=== PATIENT | male | born 1985 | race Caucasian/White ===

== ENCOUNTER 2024-01-30 09:44 | Emergency (ER) | payer MEDICAID, SELFPAY ==
--- NOTE | ~2024-01-30 | XR_ITS ---
EXAMINATION: XR HAND/WRIST, LEFT CLINICAL INFORMATION: lac to palmar hand COMPARISON: None available. TECHNIQUE: PA, lateral, and oblique views of the left hand and wrist. FINDINGS: No fracture. Alignment is anatomic. Joint spaces are maintained. No radiopaque foreign body. There appear to be locules of subcutaneous air adjacent to the second metacarpal head on the oblique view. XR/XR hand wrist LT IMPRESSION: 1. No acute fracture or radiopaque foreign body. 2. There appear to be locules of subcutaneous air adjacent to the second metacarpal head on the oblique view, which may correspond to area of laceration. Electronically signed by: Domingo Collins MD 01/30/2024 12:05 PM [facility]
[2024-01-30 09:46] VITALS: BP 160/78; PULSE 93; RESP 20; TEMP 37.1; O2SAT 96; BMI 34.7
--- NOTE | 2024-01-30 10:06 | ED.WOUNDLAC ---
HPI - Wound/Laceration General Chief Complaint: Wound/Laceration Stated Complaint: Hand lac Time Seen by Provider: 01/30/24 10:05 Source: patient Mode of arrival: ambulatory Limitations: no limitations History of Present Illness ED Provider: LEN CRUZ PA-C HPI narrative: 38-year-old [id number] male presents to the ED today for evaluation of laceration to left hand sustained while cutting chicken this morning. He states that while slicing into the chicken with his right hand, the knife cut the palmar aspect of his left hand in two separate places. Reports immediate bleeding, controlled on arrival to ED. he is not on any blood thinners. Reports pain to the area. He is unsure of tetanus status. Related Data Previous Rx's ?Medication ?Instructions ?Recorded amoxicillin 875 mg-potassium 1 tab PO BID 7 days #14 tabs 01/30/24 clavulanate 125 mg tablet naproxen 500 mg tablet 500 mg PO Q12H PRN pain (scale 01/30/24 score 1-3) #20 tabs Allergies Allergy/AdvReac Type Severity Reaction Status Date / Time acetaminophen [From Tylenol] Allergy Abdominal Verified 01/30/24 09:48 Pain ibuprofen Allergy Abdominal Verified 01/30/24 09:48 Pain Review of Systems Review of Systems: Constitutional: No fever, chills, fatigue, night sweats, weight changes ENT/Mouth: No ear pain, hearing loss, nasal congestion, sinus pain, rhinorrhea, sore throat Eyes: No eye pain, swelling, redness, vision changes, discharge Cardio: No chest pain, palpitations, KERN, orthopnea, peripheral edema Pulm: No SOB, cough, sputum, wheezing, dyspnea, hemoptysis GI: No nausea, vomiting, hematemesis, abdominal pain, diarrhea, constipation, hematochezia, melena : No irregular bleeding, dysuria, frequency, urgency, hesitancy, hematuria, flank pain, urinary flow changes, urinary incontinence or retention MSK: No back pain, neck pain, joint pain, myalgias Skin: No lesions, rashes, +lacerations to left palm Neuro: No weakness, numbness, paresthesias, LOC, dizziness, headache Psych: No anxiety/panic, depression, SI/HI, AH/VH All other systems reviewed and are negative. [facility] Past Medical History Attestation statement: The following information was validated with the patient. Source: old records reviewed and nursing notes reviewed Social History Social History Advance Directives: No Advance Directives Information Provided: Yes Do you have a plan to hurt others: No Plan Physical Exam Vital Signs: Vital Signs: Last Vital Signs Temp 98.7 F 01/30/24 09:46 Pulse 93 01/30/24 09:46 Resp 20 01/30/24 09:46 BP 160/78 H 01/30/24 09:46 Pulse Ox 96 01/30/24 09:46 O2 Del Method Room Air 01/30/24 09:46 BMI result Body Mass Index 34.7 Patient hypertensive, vitals otherwise WNL General: Well appearing, in no acute distress. Skin: Warm, dry, intact. No rashes or lesions. Head: Normocephalic, atraumatic. Cardiac: Chest wall symmetric. RRR Lungs: Normal respiratory effort without accessory muscle use Ext: + 4 cm linear laceration noted to left palm between 1st and 2nd digits. Visible subcutaneous tissue, no involvement of deeper structures. There is also a smaller, 1 cm laceration to left palmar aspect just proximal to base of left little finger. No active bleeding. No obvious foreign body. 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 Finger to thumb opposition intact. Finger strength intact. Full ROM intact to left wrist. Neuro: AOx3. Normal speech. Ambulating with steady gait. Psych: Appropriate mood and affect. Responds appropriately to questions. Course Course Course Narrative: Both lacerations repaired after being extensively irrigated with saline and iodine. Please see procedure note. Tetanus updated today. Oxycodone given for pain. X-ray negative for any fracture or foreign body. I do not have suspicion for ligament or tendon injury. Will send patient home on Augmentin. Advised to return in 7-10 days for suture removal. Patient has remained stable throughout ED visit today. Discussed worrisome signs and symptoms and when to return to the ED. All questions answered at this time. Patient is agreeable with disposition and stable for discharge. Medications Administered Discontinued Medications Generic Name Dose Route Start Last Admin Trade Name Freq PRN Reason Stop Dose Admin Diphtheria/Tetanus/Acell Pertussis 0.5 ml 01/30/24 10:15 01/30/24 10:37 Diphth,Pertus(Acell),Tet Adult 0.5 Ml Syringe IM 01/30/24 10:16 0.5 ml .ONCE ONE Administration Lidocaine HCl 5 ml 01/30/24 10:15 01/30/24 10:38 Lidocaine Hcl 1 % Mpf 5 Ml Vial INFILTRATI 01/30/24 10:16 5 ml ONCE ONE Administration Lidocaine HCl 5 ml 01/30/24 10:16 01/30/24 10:38 Lidocaine Hcl 1 % Mpf 5 Ml Vial INFILTRATI 01/30/24 10:17 5 ml ONCE ONE Administration Oxycodone HCl 5 mg 01/30/24 10:15 01/30/24 10:37 Oxycodone Hcl Immed Release 5 Mg Tablet PO 01/30/24 10:16 5 mg ONCE ONE Administration Medical Decision Making Medical Decision Making MDM Narrative: 38-year-old [id number] male presents to the ED today for evaluation of laceration to left hand sustained while cutting chicken this morning. Patient is hypertensive, vitals otherwise WNL. On exam, there is a 4 cm linear laceration noted to left palm between 1st and 2nd digits. Visible subcutaneous tissue, no involvement of deeper structures. There is also a smaller, 1 cm laceration to left palmar aspect just proximal to base of left little finger. No active bleeding. No obvious foreign body. 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 Finger to thumb opposition intact. Finger strength intact. Full ROM intact to left wrist. Differential diagnosis includes abrasion, laceration. Unlikely ligament/tendon injury, fracture. Plan for pain control, x-ray, laceration repair, Tdap booster, re-evaluation. Differential Diagnosis Differential Diagnoses: The differential diagnosis associated with the presentation includes As above Admission/Observation Not indicated Independent Interpretation I performed an independent interpretation of an: Plain X-Ray Interpretation: X-ray left hand without fracture or radiopaque fb Radiology Impression Discussion of test interpretation with radiology: I have reviewed the radiologist's reading. Radiologist Impression: EXAMINATION: XR HAND/WRIST, LEFT CLINICAL INFORMATION: lac to palmar hand COMPARISON: None available. TECHNIQUE: PA, lateral, and oblique views of the left hand and wrist. FINDINGS: No fracture. Alignment is anatomic. Joint spaces are maintained. No radiopaque foreign body. There appear to be locules of subcutaneous air adjacent to the second metacarpal head on the oblique view. XR/XR hand wrist LT IMPRESSION: 1. No acute fracture or radiopaque foreign body. 2. There appear to be locules of subcutaneous air adjacent to the second metacarpal head on the oblique view, which may correspond to area of laceration. Electronically signed by: Domingo Collins MD 01/30/2024 12:05 PM [facility] Independent Historian Clinical information obtained from an independent historian. History obtained from or confirmed by: Spouse External Record Review External record reviewed: Inpatient record Prescription Management I considered prescription management with: Antibiotic Social Determinants Patient?s care significantly limited by Social Determinants of Health including: Other Social Determinant of Health Procedures Laceration Laceration 1: Site: hand Side (If applicable): left Size (cm): 4 Description: linear Depth: simple, single layer Local Anesthetic: lidocaine 1% Amount of anesthesia used (mL): 5 Pre-repair: wound explored, irrigated extensively and deep structures intact Skin layer closed with: nylon Size (cm): 4-0 Number of sutures: 7 Technique: simple, interrupted Laceration 2: Site: hand Side (If applicable): left Size (cm): 1 Description: linear Depth: simple, single layer Local Anesthetic: lidocaine 1% Amount of anesthesia used (mL): 5 Pre-repair: wound explored, irrigated extensively and deep structures intact Skin layer closed with: nylon Size (cm): 4-0 Number of sutures: 2 Critical Care Time Critical Care Time Critical Care Time: No Discharge Plan Discharge Clinical Impression: Laceration of hand Qualifiers: Encounter type: initial encounter Foreign body presence: without foreign body Laterality: left Qualified Code(s): S61.412A - Laceration without foreign body of left hand, initial encounter Patient Disposition: Home, Self-Care Instructions: Care For Your Stitches (ED), Laceration (ED) Additional Instructions: You have been evaluated in the Emergency Department today for two lacerations to your left palm. The larger laceration was repaired with 7 sutures and the smaller laceration was repaired with 2 sutures. Please keep the area surrounding the laceration clean and dry. Do not wash the area for at least 24 hours. After 24 hours, you may wash the area, pat to dry. Please keep the area out of the sunlight for the next 6 months to help prevent scarring.? If you develop redness or swelling at the site of your laceration please come back to the ER for a wound check. I recommend you take 600mg ibuprofen every 6 hours or tylenol 650mg every 6 hours as needed for pain. If needed, you can alternate these medications so that you take one medication every 3 hours. For example, at noon take ibuprofen, then at 3pm take tylenol, then at 6pm take ibuprofen. Please follow up with your primary care physician in 7-10 days for suture removal. You can also return to the ER or another urgent care facility for this service. Return to the Emergency Department if you experience discharge from your laceration, redness around your laceration, warmth around your laceration, fever, vomiting, numbness, tingling, or any other concerning symptoms. In the case of an emergency call 911. Prescriptions: New amoxicillin-pot clavulanate 875-125 mg tablet 1 tab PO BID 7 Days Qty: 14 0RF naproxen 500 mg tablet 500 mg PO Q12H PRN (Reason: pain (scale score 1-3)) Qty: 20 0RF Referrals: Lesly Lei MD [Physician] - Print Language: Slovak
[2024-01-30] MEDS: Diphth,Pertus(ACell),Tet Adult 0.5 ML SYRINGE IM (10:37)
[2024-01-30] MEDS: oxyCODONE HCl Immed Release 5 MG TABLET PO (10:37)
[2024-01-30] MEDS: Lidocaine HCl 1 % MPF 5 ML VIAL INFILTRATI ×2 (10:38)
[2024-01-30 12:31] VITALS: BP 160/78; PULSE 93; RESP 20; TEMP 37.1; O2SAT 96
== END 2024-01-30 12:32 | disposition home or self-care (01) ==
PROVIDERS: Emergency Provider Emergency Medicine
DX: S61.412A Laceration without foreign body of left hand, initial encounter (principal); W26.0XXA Contact with knife, initial encounter; Y93.G3 Activity, cooking and baking; Y92.89 Other specified places as the place of occurrence of the external cause; Y99.8 Other external cause status; Z23 Encounter for immunization
CPT/HCPCS: 12042; 73110; 73130; 90471; 90715; 99283; 99284; J2003

== ENCOUNTER 2024-03-20 08:48 | Emergency (ER) | payer MEDICAID, SELFPAY ==
--- NOTE | ~2024-03-20 | XR_ITS ---
EXAMINATION: XR CHEST CLINICAL INFORMATION: cough COMPARISON: None available. TECHNIQUE: 2 views of the chest were obtained. FINDINGS: The cardiac, hilar, and mediastinal contours are normal. The lungs are clear bilaterally. Mildly low lung volumes. There is no pneumothorax or pleural effusion. There is no focal osseous or soft tissue abnormality. XR/XR chest 2V IMPRESSION: No active pulmonary disease. Electronically signed by: Jacinto Jimenez MD 03/20/2024 10:47 AM [facility]
--- NOTE | 2024-03-20 08:52 | ECG_ITS ---
Test Reason : chest pain Blood Pressure : */* mmHG Vent. Rate : 81 BPM Atrial Rate : 81 BPM P-R Int : 148 ms QRS Dur : 82 ms QT Int : 336 ms P-R-T Axes : 42 -16 20 degrees QTcB Int : 390 ms Normal sinus rhythm Normal ECG No previous ECGs available Referred By: Generic ED Physician Electronically Signed By: DONALD DYE
[2024-03-20 08:53] VITALS: BP 145/87; PULSE 92; RESP 18; TEMP 37; O2SAT 98; BMI 33.9
[2024-03-20 09:47] LABS: Influenza A PCR POSITIVE (Negative); Influenza B PCR NEGATIVE (Negative); Resp Syncy Virus RNA Qual PCR NEGATIVE (Negative); SARS COV2 PCR INHOUSE NEGATIVE (Negative)
[2024-03-20 11:16] VITALS: PULSE 91; RESP 20; O2SAT 96
[2024-03-20] MEDS: Albuterol Sulfate 2.5 MG, Albuterol/Iprat 2.5/0.5MG 3 ML 3 ML INHALE (11:16)
--- NOTE | 2024-03-20 11:24 | ED.URI ---
HPI - URI/Sore Throat General Chief Complaint: Upper Respiratory Symptoms Stated Complaint: Chest pain, SOB Time Seen by Provider: 03/20/24 10:07 Source: patient, RN notes reviewed and old records reviewed Mode of arrival: ambulatory History of Present Illness ED Provider: Loan Aparicio PA-C HPI Narrative: 38-year-old male with a past medical history of asthma presenting to the ED complaining of cough, SOB, chest discomfort, diarrhea, myalgias, body aches, chills, subjective fever x few days. Admits partner sick with similar symptoms. Denies travel, pedal edema, abdominal pain, vomiting Related Data Previous Rx's ?Medication ?Instructions ?Recorded amoxicillin 875 mg-potassium 1 tab PO BID 7 days #14 tabs 01/30/24 clavulanate 125 mg tablet naproxen 500 mg tablet 500 mg PO Q12H PRN pain (scale 01/30/24 score 1-3) #20 tabs albuterol sulfate 90 mcg/actuation 2 puff inhalation Q4-6H PRN 03/20/24 aerosol inhaler shortness of breath or wheezing #6.7 grams Allergies Allergy/AdvReac Type Severity Reaction Status Date / Time acetaminophen [From Tylenol] Allergy Abdominal Verified 03/20/24 08:54 Pain ibuprofen Allergy Abdominal Verified 03/20/24 08:54 Pain Review of Systems Review of Systems: Yes all other systems are reviewed and are negative Constitutional: Constitutional: Reports as per [facility] Past Medical History Attestation statement: The following information was validated with the patient. Source: old records reviewed Physical Exam Vital Signs: Vital Signs: Last Vital Signs Temp 99.2 F 03/20/24 11:45 Pulse 106 H 03/20/24 11:45 Resp 18 03/20/24 11:45 BP 137/76 03/20/24 11:45 Pulse Ox 96 03/20/24 11:45 O2 Del Method Room Air 03/20/24 11:45 BMI result Body Mass Index 33.9 Const: General: cooperative, healthy appearing and no acute distress Orientation/consciousness: patient oriented x3 Limitations: no limitations HEENT: Head: Yes normal to inspection and Yes atraumatic Ears: hearing grossly normal bilaterally General nose exam: Normal external nose present Face and sinus: Yes normal facial exam Mouth: Normal oral and palatal mucosa present Throat: Yes posterior oropharynx normal and Yes uvula midline Eyes: General: appearance normal, both eyes and all related structures EOM: EOMs intact bilaterally Neck: Neck: Yes normal visual inspection and Yes no meningeal signs Resp: Effort & Inspection: normal respiratory effort and no respiratory distress Auscultation: wheezes expiratory wheezes (Right basilar region) and lung sounds not diminished Cardio: Rate: regular rate Heart sounds: S1 normal heart sound present and S2 normal heart sound present Skin: Rashes: no rashes Wounds: no wounds Neuro: General: patient oriented x3, tone normal and no meningeal signs Cranial nerves: Yes CN's II-XII intact bilaterally Gait exam (Neuro): Normal gait present Extrem: General: Yes normal to inspection and Yes no pedal edema Course Course Course Narrative: -1132--influenza a positive > patient is out of the window for Tamiflu XR chest 2V IMPRESSION: No active pulmonary disease. Results discussed with patient including worrisome signs and symptoms and strict return precautions, and when to return to the emergency department. They verbalized understanding and feel safe for discharge at this time. Medications Administered Discontinued Medications Generic Name Dose Route Start Last Admin Trade Name Freq PRN Reason Stop Dose Admin Albuterol Sulfate 2.5 mg/ 0 mg 03/20/24 11:15 03/20/24 11:16 Albuterol/Ipratropium 3 ml INHALE 03/20/24 11:16 1 dose ONCE ONE Administration Medical Decision Making Medical Decision Making [facility] Narrative: 38-year-old male with a past medical history of asthma presenting to the ED complaining of cough, SOB, chest discomfort, diarrhea, myalgias, body aches, chills, subjective fever x few days. On exam vital signs stable, NAD, nontoxic appearing, lungs with right bibasilar wheeze, talking in complete sentences. Concern for viral illness vs asthma exacerbation vs pneumonia/bronchitis. Lower suspicion for ACS, PE, DVT, dissection Plan: EKG, CXR, viral testing, ED bronch protocol Please refer to course for remaining clinical decision making, interpretation of labs/imaging results, and discussions with consultants and/or family members. Differential Diagnosis Differential Diagnoses: The differential diagnosis associated with the presentation includes As above Lab Data [facility] Lab Attestation statement: I reviewed the patient's lab results. Labs: Lab Results 03/20/24 Range/Units 09:02 Influenza Type A (PCR) POSITIVE A (Negative) Influenza Type B (PCR) NEGATIVE (Negative) RSV RNA Qual (PCR) NEGATIVE (Negative) SARS-CoV-2 RNA (RT-PCR) NEGATIVE (Negative) Independent Interpretation I performed an independent interpretation of an: EKG (My interpretation EKG normal sinus rhythm rate of 81. HI interval 148. No previous EKGs to compare. No STEMI ) and Plain X-Ray Radiology Impression Discussion of test interpretation with radiology: I have reviewed the radiologist's reading. External Record Review External record reviewed: Inpatient record, Office record, Outpatient record, Prior outpatient labs, Prior outpatient radiology, Primary care record and Outside ED record Tests considered The following testing was considered but not selected: As above Prescription Management I considered prescription management with: Other Chronic Conditions Patient?s care impacted by: Other (Asthma) Social Determinants Patient?s care significantly limited by Social Determinants of Health including: Other Social Determinant of Health Discharge Plan Discharge Clinical Impression: Influenza Patient Disposition: Home, Self-Care Instructions: Influenza (DC) Additional Instructions: You have the flu. This is contagious, please wear a mask, wash her hands, stay away from the elderly and baby's Please use albuterol inhaler at home No antibiotics are indicated at this time Make sure you are staying hydrated. Drink plenty of fluids. Rest Alternate Tylenol and Motrin at home as needed for body aches and fever Follow-up with your doctor. If symptoms persist or worsen return to the emergency department *If you are a child & not tolerating liquid or urinating for more than 6 hours, or fevers are uncontrolled with medications at home, return to the emergency department* Prescriptions: New albuterol sulfate 90 mcg/actuation HFA aerosol inhaler 2 puff inhalation Q4-6H PRN (Reason: shortness of breath or wheezing) Qty: 6.7 0RF No Action amoxicillin-pot clavulanate 875-125 mg tablet 1 tab PO BID 7 Days Qty: 14 0RF naproxen 500 mg tablet 500 mg PO Q12H PRN (Reason: pain (scale score 1-3)) Qty: 20 0RF Referrals: Physician,Unknown J [Primary Care Provider] - Stand Alone Forms: Work/School Release Interventions: ED Discharge Assessment Last Done: 03/20/24 11:45 Discharge Date/Time: 03/20/24 11:46 Print Language: Somali
[2024-03-20 11:45] VITALS: BP 137/76; PULSE 106; RESP 18; TEMP 37.3; O2SAT 96
--- NOTE | 2024-03-20 12:07 | PC.NURSE ---
pt noted to have left white debit card on the floor in [place]. voicemail left on cell phone. card provided to security.
== END 2024-03-20 11:46 | disposition home or self-care (01) ==
PROVIDERS: Emergency Provider Emergency Medicine Emergency Medical Services
DX: J10.1 Influenza due to other identified influenza virus with other respiratory manifestations (principal); R05.9 Cough, unspecified; R06.02 Shortness of breath; Z03.818 Encounter for observation for suspected exposure to other biological agents ruled out
CPT/HCPCS: 0241U; 71046; 93005; 94640; 99284

== ENCOUNTER → 2024-03-20 08:52 | Outpatient (BNV) | payer MEDICAID, SELFPAY | PROVIDERS: Emergency Provider Emergency Medicine Emergency Medical Services; Visit Provider Internal Medicine | DX: R07.9 Chest pain, unspecified (principal) | CPT/HCPCS: 93010 ==

== ENCOUNTER → 2024-03-20 10:08 | Outpatient (BNV) | payer MEDICAID, SELFPAY | PROVIDERS: Visit Provider Radiology Diagnostic Radiology | DX: R05.9 Cough, unspecified (principal) | CPT/HCPCS: 71046 ==

== ENCOUNTER 2024-11-11 02:33 | Emergency (ER) | payer MEDICAID, SELFPAY ==
[2024-11-11 02:40] VITALS: BP 145/92; PULSE 80; RESP 20; O2SAT 95; BMI 34.4
--- OUTSIDE RECORDS SUMMARY | 2024-11-11 02:55 | XMS_ITS | Clinical Summary ---
Author Organization [facility] Address [address] [place] [address] Care Team Providers Care Videogame Tester Name Role Phone Giacomo Miller Primary Care Provider [phone] Source Comments PLEASE NOTE, if this patient is a minor, it may be UNLAWFUL to discuss sensitive information that is contained in these records (such as FAMILY PLANNING, MENTAL HEALTH or SUBSTANCE ABUSE) with the minor patient's parent or other person without the patient's specific authorization.[facility] Allergies Active Allergy Reactions Criticality Noted Date Comments Acetaminophen Other (See Comments) 10/26/2013 Irritates stomach Shrimp Anaphylaxis 10/26/2013 Medications buPROPion HCL (WELLBUTRIN) 100 mg tabletIndications: Irritability Take 1 Tablet by mouth 2 (two) times daily 60 Tablet 1 4 Active fluticasone furoate 100 mcg/actuation dsdvIndications:As thma in adult, mild persistent, uncomplicated (HHS-HCC) Inhale 1 Puff into the lungs once daily 30 Each 1 4 Active albuterol HFA 90 mcg/actuation inhalerIndications :Asthma in adult, mild persistent, uncomplicated (HHS-HCC) INHALE 2 PUFFS INTO THE LUNGS EVERY 6 HOURS. 18 g 5 Active diclofenac sodium (VOLTAREN) 1 % gelIndications:Acu te pain of right shoulder Apply topically 2 (two) times daily. 100 g 1 5 Active lidocaine (LIDODERM) 5 % patchIndications:A cute pain of right shoulder,Right-zohaib ed low back pain without sciatica, unspecified chronicity,Injury of right knee, initial encounter Place 1 Patch onto the skin daily Apply 1 patch to the affected area for a maximum of 12 hours, followed by removal for 12 hours.. 40 Patch 2 5 Active traMADoL (ULTRAM) 50 mg tabletIndications: Acute pain of right shoulder,Right-zohaib ed low back pain without sciatica, unspecified chronicity,Injury of right knee, initial encounter,Chronic bilateral thoracic back pain Take 1-2 Tablets by mouth every 6 (six) hours as needed for pain. 60 Tablet 3 5 Active Active Problems Patient Care Coordination No te Formatting of this note migh t be different from the original. 33 y/o male patient in for back pain and urinary frequency. Chronic back pain: seen 05/24/18, c/o increasing midline lower back pain over past year, initially provoked at the age of 17 due to unknown cause. Described as a constant aching sensation and cannot identify alleviating factors. Denies paraesthesia, radiation or bladder/bowel incontinence. Patient participated in physical therapy about 1.5y ago and was referred to second course at [place]. Occupation requires him to be on his feet most of the day. Problem Noted Date Diagnosed Date Current every day smoker 12/18/2018 Overview (12/18/2018): Per 10/20/18 [facility] ED report History of incarceration 05/24/2018 Overview (01/09/2019): Patient states he was incarcerated in 2005 x 5 years. Released 2011. Heart murmur 05/24/2018 Overview (01/09/2019): Referred for EKG at [facility] 07/09 Blurred vision 05/24/2018 Overview (01/09/2019): Referred to associate programmer analyst for apt 07/09 Corneal abrasion 06/11/2016 Overview (06/11/2016): 04/21/16 [facility] ED for corneal abrasion, FB removed but + residual rust ring. Given Gentamicin x 7 days, tramadol, advised f/u with ophthalmology for rust ring Substance abuse ([facility]) 03/30/2015 Overview (03/30/2015): Opioid, cocaine, cannabis Anxiety 03/30/2015 Back pain, chronic 10/28/2013 Overview (01/09/2019): 02/25/2014 [facility]: thoracic and lumbar spine negative, working with PT 201405/24/18 - increasing midline lower back pain over past year, initially provoked at the age of 17 due to unknown cause. Described as a constant aching sensation and cannot identify alleviating factors. Denies paraesthesia, radiation or bladder/bowel incontinence. Patient participated in physical therapy about 1.5y ago and was referred to second course at [place]. 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 Asthma in adult ([facility]) 10/26/2013 Overview (01/06/2015): [facility] 2014 negative Immunizations Immunization Administration Dates Next Due Flu, Preservative Free 01/30/2019 INFLUENZA, SEASONAL, INJECTABLE 12/14/2013 INFLUENZA,SEASONAL,INTRADERMAL,PRESERVATIVE FREE 04/14/2017 PNEUMOCOCCAL POLYSACCHARIDE PPV23 (Pneumovax 23) 04/14/2017 PPD 01/30/2019 TDAP 06/16/2015 Varicella (Varivax), Live Vaccine 05/25/2018,05/2018 Social History Tobacco Use Types Packs/Day Years Used Date Smoking Tobacco: Former Cigarettes Smokeless Tobacco: Never Tobacco Cessation:Counseling Given: Not Answered Alcohol Use Standard Drinks/Week Comments No 0 (1 standard drink = 0.6 oz pur e alcohol) occasional Social Connections Answer Date Recorded Connectedness 1 03/30/2023 Financial Resource Strain Answer Date R ecorded Financial Resource Strain 1 2023 Stress Answer Date Recorded Stress 0 06/30/2022 Physical Activity Answer Date Recorded Physical Activity 0 10/14/2018 Food Insecurity Answer Date Recorded Food 1 03/30/2023 Transportation Needs Answer Date Record ed Transportation 1 03/30/2023 Housing Stability Answer Date Recorded Housing 1 03/30/2023 Safety and Environment Answer Date Enio rded Safety 1 03/30/2023 Utilities Answer Date Recorded Utilities 1 03/30/2023 Employment Answer Date Recorded Employment 0 10/14/2018 Sex and Gender Information Value Date Recorded Sex Assigned at Male 04/14/2017 8:08 AM PST Legal Sex Male 7:25 AM PST Gender Identity Male 04/14/2017 8:08 AM PST Sexual Orientation Straight 04/14/2017 8: 08 AM PST Last Filed Vital Signs Vital Sign Reading Time Taken Comments Blood Pressure 146/82 07/19/2024 1:42 PM EDT Pulse 76 07/19/2024 1:42 PM EDT Temperature 36.8 C (98.2 F) 07/19/2024 1:42 PM EDT Respiratory Rate 19 07/19/2024 1:42 PM EDT Oxygen Saturation 96% 10/14/2023 3:08 PM EDT Inhaled Oxygen Concentration - - Weight 98.4 kg (217 lb) 07/19/2024 1:42 PM EDT Height 167.6 cm (5' 6 ) 07/19/2024 1:42 PM EDT Body Mass Index 35.02 07/19/2024 1:42 PM EDT Plan of Treatment Health Maintenance Due Date Last Done Comments Imm-HPV (1 - 3-dose SCDM series) 04/28/2011 Imm-Pneumococcal (2 of 2 - PCV) 04/14/2018 8 Alcohol and Drug Screen 02/22/2024 03/30/19 24, 06/30/2022, 05/25/2021, Additional history exists Tobacco Cessation Counseling (#1) 03/29/2024 Lipid Screening 10/15/2024 10/15/2021, 04/0 04/2018, 12/10/2013 [id number] ( season) 2024 Imm-Influenza (#1) 2024 01/30/2019, 0 04/14/2017, 12/14/2013 Imm-DTaP/Tdap/Td (2 - Td or Tdap) 06/15/2025 016 Annual Wellness (Adult): Indicated (All Coverage) 07/19/2025 07/19/2024, 03/30/2023, 05/25/2021, Additional history exists Anxiety Screening 07/19/2025 07/19/2024 Diabetes Screening 07/19/2025 07/19/2024, 0 07/19/2024, 10/15/2021, Additional history exists Hypertension Screening (#1) 07/19/2025 Tobacco Screening 07/19/2025 07/19/2024 HIV Screening Completed 10/15/2021, 05/24/2018 Hepatitis C Screening Completed 10/15/2021 Syphilis Screening Discontinued 10/15/2021 Depression Annual Screen Completed 025, 03/30/2023, 04/14/2017, Additional history exists Imm-Hepatitis B Discontinued Procedures Procedure Name Priority Date/Time Associated Diagnosis Comments HGBA1C W/MPG Routine 07/19/2024 2:13 PM EDT Asthma in adult without complication, unspecified asthma severity, unspecified whether persistent (HHS-HCC) Asthma in adult, mild persistent, uncomplicated (HHS-HCC) Routine [facility] Chest pressure STANISLAV (obstructive sleep apnea) HIV 1/2 AG & AB W/RFLX (4TH GEN) Routine 10/15/2021 11:24 AM EDT Routine screening for STI (sexually transmitted infection) SYPHILIS ANTIBODY CASCADING REFLEX Routine 10/15/2021 11:24 AM EDT Routine screening for STI (sexually transmitted infection) HEPATITIS C AB W/RFLX HCV RNA, QT, RT PCR Routine 10/15/2021 11:24 AM EDT Routine screening for STI (sexually transmitted infection) LIPID PANEL Routine 10/15/2021 11:24 AM EDT Nonintractable headache, unspecified chronicity pattern, unspecified headache type from Last 3 Months or Most Recently Relevant to Health Maintenance Results * (ABNORMAL) HGBA1C W/MPG Routine (07/19/2024 2:13 PM EDT) HEMOGLOBIN A1C 5.7(H) <5.7 % [employer] [facility] Comment: For someone without known diabetes, a hemoglobin A1c value between 5.7% and 6.4% is consistent with prediabetes and should be confirmed with a follow-up test. For someone with known diabetes, a value <7% indicates that their diabetes is well controlled. A1c targets should be individualized based on duration of diabetes, age, comorbid conditions, and other considerations. This assay result is consistent with an increased risk of diabetes. Currently, no consensus exists regarding use of hemoglobin A1c for diagnosis of diabetes for children. MEAN PLASMA GLUCOSE 126 mg/dL (calc) [facility] Blood Blood / Unknown 07/19/2024 2 :13 PM EDT 07/19/2024 2:14 PM EDT Narrative [employer] - 07/20/2024 3:17 PM EDT FASTING:NO Giacomo DAVIDSON LAB - BLOOD DRAW Edited Result - Final Performing Organization Address [facility]/ZIP Co de Phone Number [employer] [address] [place] [address], [employer] [address] [address] * HEPATITIS C AB W/RFLX HCV RNA, QT, RT PCR (10/15/2021 11:24 AM EDT) HEPATITIS C ANTIBODY NON-REACT GUANACO NON-REACT GUA[employer]CO [facility] SIGNAL TO CUT-OFF 0.15 <1.00 [facility] Comment: HCV antibody was non-reactive. There is no laboratory evidence of HCV infection. In most cases, no further action is required. However, if recent HCV exposure is suspected, a test for HCV RNA (test code 24640) is suggested. For additional information please refer to http://education.[employer]/faq/SVH42i9 (This link is being provided for informational/ educational purposes only.) Blood Blood / Unknown 10/15/2021 1 1:24 AM EDT 10/15/2021 11:24 AM EDT Rachel PAULAP-C LAB - BLOOD DRAW Edited Result - Final Performing Organization Address [facility]/ZIP Co de Phone Number [employer] [address] [address], [employer] [address] [place] [address],[place] [address] * SYPHILIS ANTIBODY CASCADING REFLEX (10/15/2021 11:24 AM EDT) T. PALLIDUM AB, EIA NEGATIVE NEGATIVE [facility] Comment: No antibodies to T. pallidum (the agent causing syphilis) were detected in the specimen. This result, however, does not exclude very recent T. pallidum infection; testing of a second specimen, collected 2-4 weeks after this specimen, is recommended if the index of suspicion for recent infection is high. Blood Blood / Unknown 10/15/2021 1 1:24 AM EDT 10/15/2021 11:24 AM EDT Rachel Mendoza APPLICATIONS SYSTEMS ANALYST-C LAB - BLOOD DRAW Edited Result - Final [employer] [address] [address], [employer] [address] [address] * HIV 1/2 AG & AB W/RFLX (4TH GEN) (10/15/2021 11:24 AM EDT) HIV AG/AB, 4TH GEN NON-REAC TIVE NON-REAC TIVE [employer] [facility] Comment: HIV-1 antigen and HIV-1/HIV-2 antibodies were not detected. There is no laboratory evidence of HIV infection. PLEASE NOTE: This information has been disclosed to you from records whose confidentiality may be protected by state law. If your state requires such protection, then the state law prohibits you from making any further disclosure of the information without the specific written consent of the person to whom it pertains, or as otherwise permitted by law. A general authorization for the release of medical or other information is NOT sufficient for this purpose. For additional information please refer to http://education.[employer]/faq/QMS178 (This link is being provided for informational/ educational purposes only.) The performance of this assay has not been clinically validated in patients less than 2 years old. Blood Blood / Unknown 10/15/2021 1 1:24 AM EDT 10/15/2021 11:24 AM EDT us Rachel Mullervich APPLICATIONS SYSTEMS ANALYST-C LAB - BLOOD DRAW Final R esult [employer] [facility] [address] [address], [employer] [address] [address] * LIPID PANEL (10/15/2021 11:24 AM EDT) CHOLESTEROL, TOTAL 155 <200 mg/dL [facility] HDL CHOLESTEROL 45 > OR = 40 mg/dL [employer] TRIGLYCERIDES 106 <150 mg/dL [employer] LDL-CHOLESTEROL 90 99 mg/dL (calc) [employer] [facility] Comment: Reference range: <100 Desirable range <100 mg/dL for primary prevention; <70 mg/dL for patients with CHD or diabetic patients with > or = 2 CHD risk factors. LDL-C is now calculated using the Dragan calculation, which is a validated novel method providing better accuracy than the Friedewald equation in the estimation of LDL-C. Justin KIM et al. DEAN. 2013;310(19): 2894-3604 (http://education.[employer]/faq/VGZ290) CHOL/HDLC RATIO 3.4 <5.0 (calc) [employer] NON-HDL CHOLESTEROL 110 <130 mg/dL (calc) [employer] Comment: For patients with diabetes plus 1 major ASCVD risk factor, treating to a non-HDL-C goal of <100 mg/dL (LDL-C of <70 mg/dL) is considered a therapeutic option. Blood Blood / Unknown 10/15/2021 1 1:24 AM EDT 10/15/2021 11:24 AM EDT Rachelstephanie Mendoza APPLICATIONS SYSTEMS ANALYST-C LAB - BLOOD DRAW Final R esult [facility] [address] [address], [employer] [address] [address] from Last 3 Months or Most Recently Relevant to Health Maintenance Insurance [employer] Care Teams Videogame Tester Relationship Specialty Start Date End Date Giacomo Miller PA [address] [place] [address] PCP - General Internal Medicine 06/01/17
--- OUTSIDE RECORDS SUMMARY | 2024-11-11 02:55 | XMS_ITS | Clinical Summary ---
Author Organization [employer] [facility] Address [address] [place] [address] Care Team Providers Care Machine Cloth Examiner Name Role Phone Unavailable Primary Care Provider Unavailabl e Encounters Date Type Department Care Team Description 09/11/2024 Population Health Risk Score [facility] (C3) Department [address] [facility] [address] [place] [id number] Provider, Population Health Generic from Last 3 Months Social History Tobacco Use Types Packs/Day Years Used Date Smoking Tobacco: Never Assessed Sex and Gender Information Value Date Recorded Sex Assigned at Not on file Legal Sex Male 9:30 PM EDT Gender Identity Not on file Sexual Orientation Not on file Plan of Treatment Health Maintenance Due Date Last Done Comments Depression Screening 1984 Lipid Panel 1984 SDOH Screening 1984 Disability Screening 1984 Alcohol/Substance Use Screening 1996 Tobacco Screening 1996 Family Planning (PISQ) 04/28/1999 HPV Vaccines (1 - Male 3-dos e series) 04/28/1999 Hepatitis C Screening 2002 Hepatitis B Vaccines (1 of 3 - 19+ 3-dose series) 04/28/2003 Pneumococcal Vaccine: Pediatrics (0 to 5 Years) and At-Risk Patients (6 to 49) Years (2 of 2 - PCV) 04/14/2018 04/14/2017 COVID-19 Vaccine (1 - 2023-2 5 season) 2024 Influenza Vaccine (#1) 2024 9, 04/14/2017, 12/14/2013 DTaP/Tdap/Td Vaccines (2 - T d or Tdap) 06/15/2025 06/16/2015 Zoster Vaccines (1 of 2) 2034 RSV Patients and Patients Aged 60 years or older (1 - 1-dose 75+ series) 04/28/2059 HIV Screening Completed 10/15/2021, 10/15/2021 HIB Vaccines Aged Out No longer eligi ble based on patient's age to complete this topic Hepatitis A Vaccines Aged Out No long er eligible based on patient's age to complete this topic IPV Vaccines Aged Out No longer eligi ble based on patient's age to complete this topic Meningococcal B Vaccine Aged Out No l onger eligible based on patient's age to complete this topic Meningococcal Vaccine Aged Out No lebron heather eligible based on patient's age to complete this topic RSV under 20 months Aged Out No longe r eligible based on patient's age to complete this topic Rotavirus Vaccines Aged Out No longer eligible based on patient's age to complete this topic
[2024-11-11] MEDS: Lidocaine HCl Viscous 2 % 15 ML SOLUTION MUCOUS MEM (03:14)
--- NOTE | 2024-11-11 04:15 | ED_ITS ---
HPI - Male Genitourinary General Chief complaint: Urogenital-Male Stated complaint: Uro Gen Male Time Seen by Provider: 11/11/24 02:54 History of Present Illness ED Provider: Johnathon Sadler MD HPI Narrative: This is a 39-year-old male who describes about 2 days of phimosis. He has been able to urinate denies fever or chills or any urologic issues in the past. He had called the urologist to possibly discuss an elective circumcision however earlier in the evening he pulled his foreskin back and then it became stuck as a paraphimosis. He has passed urine. Related Data Previous Rx's ?Medication ?Instructions ?Recorded amoxicillin 875 mg-potassium 1 tab PO BID 7 days #14 t abs 01/30/24 clavulanate 125 mg tablet naproxen 500 mg tablet 500 mg PO Q12H PRN pain (sca le 01/30/24 score 1-3) #20 tabs albuterol sulfate 90 mcg/actuation 2 puff inhalation Q 4-6H PRN 03/20/24 aerosol inhaler shortness of breath or wheez ing #6.7 grams bacitracin 500 unit/gram topical 1 appl topical TID #1 4 grams 11/11/24 ointment Allergies Allergy/AdvReac Type Severity Reaction Status Date / Time acetaminophen (From Tylenol) Allergy Abdominal Verified 11/11/24 02:41 Pain ibuprofen Allergy Abdominal Verified 11/11/24 02:41 Pain PMFSH Social History Social History Substance Use Type: Marijuana Physical Exam Exam: Exam: GENERAL: Well appearing. No apparent distress. Alert. HEAD/NECK: No visual trauma. EYES: Normal to inspection. No conjunctival erythema. No discharge. ENMT: Hearing grossly normal. External nose normal. RESPIRATORY: Respiratory effort normal. CARDIOVASCULAR: Additional details (Grossly well perfused). SKIN: No jaundice. NEUROLOGICAL: Alert. Moving all extremities x4. Additional details (No gross motor deficits. Normal tone. ). PSYCHIATRIC: Alert. Appearance appropriate for situation. : Paraphimosis with tight constricted ring at the base of the glans. Some of the foreskin is trapped distal. The glands is edematous does not appear dusky or necrotic but has a slightly darker appearance than would be expected. There does appear to be cap refill. Vital Signs: Vital Signs: Last Vital Signs Temp 0 F L 11/11/24 11:13 Pulse 67 11/11/24 11:13 Resp 20 11/11/24 11:13 BP 141/77 H 11/11/24 11:13 Pulse Ox 96 11/11/24 11:13 O2 Del Method Room Air 11/11/24 11:13 BMI result Body Mass Index 34.4 Course Reevaluation(s) Reevaluation #1: I assumed care for this patient at 06:[address] Blanco, patient is a 39-year-old male with paraphimosis and unsuccessful attempt to reduce in the emergency department, patient was seen and evaluated by Dr. Alejo in the ED was able to reduce for skin will discharge and follow-up as an outpatient in the [facility]. Time: 10:48 Medications Administered Discontinued Medications Generic Name Dose Route Start Last Admin Trade Name Freq PRN Reason Stop Dose Admin Hydromorphone HCl 1 mg 11/11/24 08:52 11/11/24 09:00 Hydromorphone Hcl 1 Mg/Ml Syringe IVPUSH 11/11/24 08:53 1 mg ONCE ONE Administration Protocol Lidocaine HCl 15 ml 11/11/24 03:03 11/11/24 03:14 Lidocaine Hcl Viscous 2 % 15 Ml Solution MUCOUS MEM 11/11/24 03:04 15 ml ONCE ONE Administration Lidocaine HCl 10 ml 11/11/24 03:37 11/11/24 04:21 Lidocaine Hcl 1 % 20 Ml Vial INFILTRATI 11/11/24 03:38 10 ml ONCE ONE Administration Lidocaine HCl 10 ml 11/11/24 10:13 11/11/24 11:11 Lidocaine Hcl 1 % 20 Ml Vial INFILTRATI 11/11/24 10:14 10 ml ONCE ONE Administration Lidocaine/Epinephrine 10 ml 11/11/24 04:02 11/11/24 06:48 Lidocaine Hcl 1%/Epi 1:100,000 10 Ml Vial INFILTRATI 11/11/24 04:03 Not Given ONCE ONE Midazolam HCl 3 mg 11/11/24 03:01 11/11/24 03:11 Midazolam Hcl 2 Mg/2 Ml Vial IVPUSH 11/11/24 03:02 3 mg ONCE ONE Administration Morphine Sulfate 4 mg 11/11/24 03:01 11/11/24 03:11 Morphine Sulfate 4 Mg/Ml Cartridge IVPUSH 11/11/24 03:02 4 mg ONCE ONE Administration Protocol Morphine Sulfate 4 mg 11/11/24 05:56 11/11/24 06:09 Morphine Sulfate 4 Mg/Ml Cartridge IVPUSH 11/11/24 05:57 4 mg ONCE ONE Administration Protocol Medical Decision Making Medical Decision Making MDM Narrative: Medical Decision Makin-year-old male with paraphimosis for several hours. Multiple attempts with using sugar, ice, manual decompression after penile nerve block unsuccessful. Call made to Urology to discuss the case. Given that it was late in the morning about 04:00 when we discuss the case the surgeon asked me to hold off on dorsal slit as she would be coming early in the morning to address the paraphimosis. At this time I think that is reasonable plan given there was no signs of necrosis of the glans Preliminary Favored Differential Diagnosis: Paraphimosis among additional considered etiologies Testing Interpreted Independently: ?See below for details Radiology or Lab testing Results Reviewed: ?See below for details Consults: ?See below for details Independent Historians/External Chart Reviews: ?See below for details Social Determinants of Health Impacting MDM/Planning: ?See below for details Consult Healthcare Provider Management of the patient was discussed with: Shake Splitter (0400 Dr. Sapna gaxiola to come and see the patient) Procedures Procedure Narrative Procedure Narrative: Attempt at manual Penile Procedure Indication: paraphimosis Sedation/Analgesia: opioids Local Anesthesia Used: lidocaine 1% without epi Amount of anesthesia used (mL): 8 Reduction of Paraphimosis: manual pressure (Sugar) Patient Tolerated Procedure: well Additional Comments: Unable to reduce Phimosis Discharge Plan Discharge Clinical Impression: Paraphimosis Patient Disposition: Home, Self-Care Instructions: Acute Paraphimosis (ED) Prescriptions: New bacitracin 500 unit/gram ointment 1 appl topical TID Qty: 14 0RF No Action albuterol sulfate 90 mcg/actuation HFA aerosol inhaler 2 puff inhalation Q4-6H PRN (Reason: shortness of breath or wheezing) Qty: 6.7 0RF amoxicillin-pot clavulanate 875-125 mg tablet 1 tab PO BID 7 Days Qty: 14 0RF naproxen 500 mg tablet 500 mg PO Q12H PRN (Reason: pain (scale score 1-3)) Qty: 20 0RF Referrals: Stewart-Sapna,Corlis, MD [Physician, Urology] Interventions: ED Discharge Assessment Last Done: 11/11/24 11:13 Discharge Date/Time: 11/11/24 11:14 Print Language: Kiswahili
[2024-11-11] MEDS: Lidocaine HCl 1 % 20 ML VIAL 10 ML INFILTRATI ×2 (04:21→11:11)
--- NOTE | 2024-11-11 04:55 | PC.NURSE ---
18fr reyes cath placed 10ml balloon 200ml initial output upon insertion
--- NOTE | 2024-11-11 05:35 | PC.NURSE ---
disposition pending pt awaiting to be seen by dr fan
[2024-11-11 05:46] VITALS: BP 142/87; PULSE 64; TEMP 36.7; O2SAT 95
--- NOTE | 2024-11-11 06:12 | PC.NURSE ---
pt medicated according to apr 30 pain awaiting to be seen by dr fan
--- NOTE | 2024-11-11 06:48 | PC.NURSE ---
per epi held while waiting for consult with dr fan . med charted against in mar
[2024-11-11 08:11] VITALS: BP 153/95; PULSE 71; RESP 18; O2SAT 97
--- NOTE | 2024-11-11 08:35 | PC.NURSE ---
Resumed care of patient at 0700, at this time we are waiting on urology to come to bedside. Pt continues to be in high discomfort, reyes maintained, urine draining well. Pt has call story at bedside.
[2024-11-11 09:00] VITALS: RESP 20
[2024-11-11 10:03] VITALS: BP 141/77; PULSE 67; RESP 20; O2SAT 96
--- NOTE | 2024-11-11 10:37 | PM.UROCN ---
History of Present Illness Consult details Consult date: 11/11/24 Narrative: Called to evaluate for paraphimosis. 39-year-old with a history of phimosis states he pulled foreskin back for hygiene and cleaning and was unable to bring the foreskin over the glans. He came to the ER due to pain. Review of Systems Review of Systems: Yes all other systems are reviewed and are negative Constitutional: Constitutional: Reports no additional constitutional complaints Eyes: Eyes: Reports no additional eye complaints ENT: Reports system reviewed and no additional complaints, except as documented Cardiovascular: Cardiovascular: Reports no additional cardiovascular complaints Respiratory: Respiratory: Reports no additional respiratory complaints Gastrointestinal: Gastrointestinal: Reports no additional gastrointestinal complaints Genitourinary: Genitourinary: Reports as per HPI Musculoskeletal: Musculoskeletal: Reports no additional musculoskeletal complaints Integumentary/Breasts: Skin/Breast: Reports system reviewed and no additional complaints, except as docu Neurologic: Reports system reviewed and no additional complaints, except as documented Psychiatric: Psychiatric: Reports no additional psychiatric complaints Endocrine: Endocrine: Reports no additional endocrine complaints Hematologic/Lymphatic: Hematologic/Lymphatic: Reports no additional hematologic/lymphatic complaints Allergic/Immunologic: Allergic/Immunologic: Reports no additional allergic/immunologic complaints [facility] Social History Social History Smoked in Last 30 Days: Yes Use of substances other than those prescribed or required for medical reasons: Yes Substance Use Type: Marijuana Advance Directives: No Advance Directives Information Provided: Yes Do you have a plan to hurt others: No Plan Meds Allergies Allergy/AdvReac Type Severity Reaction Status Date / Time acetaminophen (From Tylenol) Allergy Abdominal Verified 11/11/24 02:41 Pain ibuprofen Allergy Abdominal Verified 11/11/24 02:41 Pain Physical Exam Vital Signs: Vital Signs: Last Vital Signs Temp 98.1 F 11/11/24 05:46 Pulse 67 11/11/24 10:03 Resp 20 11/11/24 10:03 BP 141/77 H 11/11/24 10:03 Pulse Ox 96 11/11/24 10:03 O2 Del Method Room Air 11/11/24 10:03 BMI result Body Mass Index 34.4 Const: General: healthy appearing, no acute distress and well developed Orientation/consciousness: patient oriented x3 HEENT: Head: Yes normocephalic and Yes atraumatic Eyes: Conjunctivae: conjunctivae normal Neck: Neck: Yes normal visual inspection Chest: Chest palpation & inspection: normal inspection of the chest Resp: Effort & Inspection: normal respiratory effort GI: Inspection: Yes normal to inspection Palpation (GI): Soft to palpation : Penis: uncircumcised and paraphimosis Scrotum: scrotum normal Neuro: General: patient oriented x3 Psych: Appearance: grossly normal Affect: normal affect Results Labs Labs: All other labs normal. Assessment and Plan (1) Paraphimosis: Status: Acute (2) Phimosis: Status: Acute Plan Lotrisone cream. Schedule outpatient circumcision as soon as possible. Procedures Date of Service Date of Service: 11/11/24 Penile Procedure Time out performed: Yes Indication: paraphimosis Procedural sedation: No Local anesthesia used: penile nerve block (Lidocaine 1% without epi) Amount of anesthesia used (ml): 18 Reduction of paraphimosis: manual pressure Patient tolerated procedure: well and no complications Procedure Note Procedure Note: Penile block performed foreskin manually . Patient tolerated.
--- NOTE | 2024-11-11 11:12 | PC.NURSE ---
back charting: escalation made to urology as pt was continuing to be in pain, feeling as though his swelling was getting worse. Urology at bedside approx 1045, medications and supplies provider per request. MD was able to retract skin, she removed the reyes in place. Pt in agreement with follow up, able to verbalize medication and hygiene care at this time.
[2024-11-11 11:13] VITALS: BP 141/77; PULSE 67; RESP 20; TEMP -17.7; TEMP 0; O2SAT 96
== END 2024-11-11 11:14 | disposition home or self-care (01) ==
PROVIDERS: Emergency Provider Emergency Medicine
DX: N47.2 Paraphimosis (principal); N47.1 Phimosis
CPT/HCPCS: 54450; 96374; 96375; 96376; 99284; J1171; J2003; J2250; J2270

== ENCOUNTER → 2024-11-11 02:49 | Outpatient (BNV) | payer MEDICAID, SELFPAY | PROVIDERS: Emergency Provider Emergency Medicine; Visit Provider Urology | DX: N47.2 Paraphimosis (principal) | CPT/HCPCS: 54450; 99283 ==

== ENCOUNTER 2025-02-04 10:06 | Outpatient (AMB) | payer MEDICAID, SELFPAY ==
--- NOTE | 2025-02-04 10:35 | A.OFFVIS_ITS ---
Intake Visit Reasons: Paraphimosis (set)UA) Intake Note: Patient presents today for paraphimosis Urology Medication:None Blood Thinner:None Antibiotic Allergies:None Allergies acetaminophen (From Tylenol) Allergy (Verified 02/04/25 10:37) Abdominal Pain ibuprofen Allergy (Verified 02/04/25 10:37) Abdominal Pain HPI Comments Details: 02/04/25--adenoid is a 39-year-old male who was initially evaluated in the emergency room as an urgent visit due to paraphimosis he is here to discuss circumcision for management of phimosis have a [facility] Social History Substance Use Type: Marijuana Review of Systems Const All systems reviewed & are unremarkable except as noted in HPI and below Reports no additional complaints Eyes Reports no additional complaints ENT Reports no additional complaints Card Reports no additional complaints Resp Reports no additional complaints GI Reports no additional complaints Reports as per HPI Musc Reports no additional complaints Skin/Breast Reports system reviewed and no additional complaints, except as documented Neuro Reports no additional complaints Psych Reports no additional complaints Endo Reports no additional complaints Alcides/Lymph Reports no additional complaints Aller/Immun Reports no additional complaints Results AMB Urinalysis, Automated UA Leukoctes 0 Jasmina/uL Last Edit by Melodie Hunter on 02/04/25 13:58 UA Nitrite Negative Last Edit by Melodie Hunter on 02/04/25 13:58 UA Urobilinogen 0.2 mg/dL Last Edit by Melodie Hunter on 02/04/25 13:58 UA Protein 15 mg/dL Last Edit by Melodie Hunter on 02/04/25 13:58 UA pH 6.0 Last Edit by Melodie Hunter on 02/04/25 13:58 UA Blood 0 Marek/uL Last Edit by Melodie Hunter on 02/04/25 13:58 UA Specific [place] 1.015 Last Edit by Melodie Hunter on 02/04/25 13:58 UA Ketone Negative Last Edit by Melodie Hunter on 02/04/25 13:58 UA Bilirubin 0 mg/dL Last Edit by Melodie Hunter on 02/04/25 13:58 UA Glucose 0 mg/dL Last Edit by Melodie Hunter on 02/04/25 13:58 Assessment & Plan Assessment & Plan (1) Balanitis: Code(s): N48.1 - Balanitis Category: Medical (2) Phimosis: Code(s): N47.1 - Phimosis Category: Medical Orders: Orders AMB Urinalysis Automated Today N47.1 - Phimosis, N48.1 - Balanitis Coding Diagnoses Balanitis N48.1 Phimosis N47.1
== END 2025-02-04 11:00 | disposition home or self-care (01) ==
LOC: HO.HUSH 10:07
PROVIDERS: Visit Provider Urology
DX: N48.1 Balanitis (principal); N47.1 Phimosis

== ENCOUNTER → 2025-02-04 10:06 | Outpatient (BNVA) | payer MEDICAID, SELFPAY | PROVIDERS: Visit Provider Urology | DX: N48.1 Balanitis (principal); N47.1 Phimosis | CPT/HCPCS: 81003 ==